=== PATIENT | female | born 1975 | race African-American/Black ===

== ENCOUNTER 2018-12-15 22:18 | Emergency (ER) | payer OTHER ==
[~2018-12-15] VITALS: Ht 162.6 cm; Wt 113.4 kg
[2018-12-15] MEDS ORDERED: CALCIUM 600 +1 EAC1 PO (22:57)
[2018-12-15] MEDS ORDERED: UNICOMPLEX M TA1 TA1 PO (22:57)
[2018-12-16] MEDS ORDERED: TRAMADOL 50 MG50 MG PO (01:35)
[2018-12-16] MEDS ORDERED: NAPROSYN500 MG PO (01:35)
[2018-12-16 02:05] VITALS: BP 181/70
== END 2018-12-16 02:07 | disposition home or self-care (01) ==
LOC: ER 22:18
DX: S60.222A Contusion of left hand, initial encounter (principal); Z90.49 Acquired absence of other specified parts of digestive tract; W22.8XXA Striking against or struck by other objects, initial encounter; Y93.89 Activity, other specified; Y92.89 Other specified places as the place of occurrence of the external cause; Y99.8 Other external cause status